=== PATIENT | male | born 1995 | race Caucasian/White ===

== ENCOUNTER 2017-11-15 17:16 | Emergency (ER) | payer SELFPAY ==
--- NOTE | 2017-11-15 19:22 | ER ---
Nurse's Notes [facility] Name: Layton Wagner Jr Age: 21 yrs Sex: Male : 1995 Arrival Date: 11/15/2017 Time: 17:18 Bed Waiting Private MD: None, None Diagnosis: Presentation: 11/15 17:49 Presenting complaint: Patient states: Flu like symptoms for 1 month. Transition of aj care: patient was not received from another setting of care. Onset of symptoms was October 16, 2017. Risk Assessment: Do you want to hurt yourself or someone else? Patient reports no desire to harm self or others. Initial Sepsis Screen: Does the patient meet any 2 criteria? No. Patient's initial sepsis screen is negative. Does the patient have a suspected source of infection? No. Patient's initial sepsis screen is negative. Care prior to arrival: None. 17:49 Method Of Arrival: Ambulatory aj 17:49 Acuity: RADHA 4 aj Triage Assessment: 17:49 General: Appears in no apparent distress. comfortable, Behavior is calm, cooperative, aj appropriate for age. Pain: Denies pain. Neuro: Level of Consciousness is awake, alert, obeys commands, Oriented to person, place, time, situation, Appropriate for age. Respiratory: Reports cough that is Airway is patent Trachea midline Respiratory effort is even, unlabored, Respiratory pattern is regular, symmetrical. Derm: Skin is intact, is healthy with good turgor, Skin is pink, warm \T\ dry. normal. Historical: - Allergies: 17:49 No Known Allergies; aj - Home Meds: 17:49 None [Active]; aj - PMHx: 17:49 None; aj - PSHx: 17:49 Knee surgery; aj - Immunization history:: Adult Immunizations up to date. - Social history:: Smoking status: Patient uses tobacco products, smokes one-half pack cigarettes per day, Patient uses alcohol, on a daily basis. - Ebola Screening: : Patient negative for fever greater than or equal to 101.5 degrees Fahrenheit, and additional compatible Ebola Virus Disease symptoms Patient denies exposure to infectious person Patient denies travel to an Ebola-affected area in the 21 days before illness onset No symptoms or risks identified at this time. Vital Signs: 17:49 BP 161 / 91; Pulse 100; Resp 20; Temp 98.1; Pulse Ox 97% on R/A; Weight 91.17 kg; aj Height 6 ft. 1 in. (185.42 cm); 17:49 Body Mass Index 26.52 (91.17 kg, 185.42 cm) aj ED Course: 17:18 Patient arrived in ED. mr 17:19 None, None is Private Physician. mr 17:49 Triage completed. aj 17:49 Arm band placed on left wrist. Patient placed in waiting room, Patient notified of wait aj time. 19:20 Patient's name was called from ER lobby. No response. Unable to locate patient. Will ak1 disposition as left without being seen by a provider. 19:21 Shanae Kerr, RN is Primary Nurse. ak1 Administered Medications: No medications were administered Outcome: 19:21 Patient left the ED. ak1 Signatures: Milagro Suero, RN RN Kendal Mendoza mr Shanae Kerr, RN RN ak1
== END 2017-11-15 19:21 | disposition left against medical advice (07) ==
LOC: ER 17:16
DX: Z53.21 Procedure and treatment not carried out due to patient leaving prior to being seen by health care provider (principal)
CPT/HCPCS: 99281